=== PATIENT | male | born 1940 | race Caucasian/White ===

== ENCOUNTER 2024-07-05 22:28 | Observation (INO) ==
[2024-07-05 23:02] LABS: Hematocrit 31.8 % (38-53); Hemoglobin 11.2 g/dL (13.2-16.3); Mean Corpuscular Hemoglobin 30.1 pg (27-33); Mean Corpuscular Hgb Conc 35.2 g/dL (31-36); Mean Corpuscular Volume 85.5 fL (80-97); Mean Platelet Volume 6.1 fL (7.5-11.2); Platelet Count 294 10^3/uL (150-450); Red Blood Count 3.72 10^6/uL (4.06-5.63); Red Cell Distribution Width 16.1 % (12-17); White Blood Count 5.5 10^3/uL (3.6-10.2)
[2024-07-05 23:06] LABS: INR 0.96 (0.85-1.14)
[2024-07-05 23:24] LABS: High Sens Troponin Baseline 10 pg/mL (<20)
[2024-07-05 23:51] LABS: ALT 12 U/L (7-52); Albumin 3.9 g/dL (3.2-5.2); Albumin/Globulin Ratio 1.8 (1-3); Alkaline Phosphatase 60 U/L (35-149); Anion Gap 9 mmol/L (2-16); Blood Urea Nitrogen 30 mg/dL (6-24); CO2 Carbon Dioxide 26 mmol/L (22-32); Calcium 9.3 mg/dL (8.6-10.3); Chloride 93 mmol/L (101-111); Creatinine, Serum 1.26 mg/dL (0.67-1.17); Globulin 2.2 g/dL (2-4); Glucose 168 mg/dL (70-100); Magnesium 1.5 mg/dL (1.9-2.7); Sodium 128 mmol/L (135-145); Total Bilirubin 0.5 mg/dL (0.2-1.0); Total Protein 6.1 g/dL (6.4-8.9); eGFR CKD-EPI 56.9 (>60)
[2024-07-06 00:06] LABS: TSH Ultra Thyroid Stim Horm 3.96 mcIU/mL (0.34-5.60)
[2024-07-06 00:38] LABS: ABS Basophils 0.1 10^3/uL (0.0-0.1); ABS Eosinophils 0.1 10^3/uL (0.0-0.5); ABS Lymphocytes 1.6 10^3/uL (1.0-4.8); ABS Monocytes 0.9 10^3/uL (0.0-1.1); ABS Neutrophils 2.9 10^3/uL (1.5-7.6); ABS Nucleated RBC 0.01 10^3/ul; Eosinophil % 2.1 %; Lymphocyte % 28.9 %; Nucleated Red Blood Cells % 0.1 %/100WBC (0.0-0.8)
[2024-07-06 00:59] LABS: Potassium Redraw 4.3 mmol/L (3.5-5.0)
[2024-07-06] MEDS: Heparin 5000 UNITS/ML 1 mL VIAL IV SCH (02:20)
[2024-07-06] MEDS: Heparin DRIP 25,000 UNITS BAG 25,000 UNITS/250 ML BAG IV SCH (02:23)
[2024-07-06 02:59] LABS: High Sensitivity Troponin 3 Hr 141 pg/mL (<20)
[2024-07-06] MEDS ORDERED: Sulfur Hexaflouride MICROSPHR 25 MG VIAL IV PRN (03:27)
[2024-07-06] MEDS ORDERED: Nitroglycerin 0.6 mg TAB SL PRN (04:31)
[2024-07-06] MEDS: Magnesium Sulf 4 GM/100 ML IV 4,000 MG/100 ML BAG IVPB ONE (04:42)
[2024-07-06] MEDS ORDERED: Dextrose 50% Syringe 50 ml 25 GM/50 ML SYRINGE IV PUSH PRN (05:02)
[2024-07-06] MEDS: NS 0.9% 500 ml BAG 500 ML IV ONE (05:07)
[2024-07-06 05:13] LABS: Cholesterol 161 mg/dL; LDL Cholesterol 76 mg/dL; Triglycerides 86 mg/dL
[2024-07-06 06:08] LABS: Urine Appearance Clear; Urine Bilirubin Negative (Negative); Urine Blood Negative (Negative); Urine Color Colorless; Urine Glucose Negative (Negative); Urine Ketones Negative (Negative); Urine Nitrite Negative (Negative); Urine Protein Negative (Negative); Urine Urobilinogen Negative (Negative)
[2024-07-06 06:54] LABS: Hematocrit 28.9 % (38-53); Hemoglobin 10.1 g/dL (13.2-16.3); Mean Corpuscular Hemoglobin 30.3 pg (27-33); Mean Corpuscular Hgb Conc 35.1 g/dL (31-36); Mean Corpuscular Volume 86.4 fL (80-97); Mean Platelet Volume 5.9 fL (7.5-11.2); Platelet Count 248 10^3/uL (150-450); Red Blood Count 3.34 10^6/uL (4.06-5.63); Red Cell Distribution Width 15.8 % (12-17); White Blood Count 4.2 10^3/uL (3.6-10.2)
[2024-07-06] MEDS: Aspirin EC 81 mg TAB.EC (enteric coated) PO SCH (08:27)
[2024-07-06 09:16] LABS: Calcium 8.5 mg/dL (8.6-10.3); Creatinine, Serum 1.01 mg/dL (0.67-1.17); Magnesium 2.3 mg/dL (1.9-2.7); Potassium 4.2 mmol/L (3.5-5.0); eGFR CKD-EPI 74.3 (>60)
[2024-07-06 09:18] LABS: High Sensitivity Troponin 3 Hr 64 pg/mL (<20)
[2024-07-07 06:19] LABS: ABS Eosinophils 0.1 10^3/uL (0.0-0.5); ABS Lymphocytes 0.9 10^3/uL (1.0-4.8); ABS Monocytes 0.6 10^3/uL (0.0-1.1); ABS Neutrophils 2.3 10^3/uL (1.5-7.6); Eosinophil % 2.6 %; Hematocrit 29.1 % (38-53); Hemoglobin 10.3 g/dL (13.2-16.3); Lymphocyte % 21.7 %; Mean Corpuscular Hemoglobin 30.3 pg (27-33); Mean Corpuscular Hgb Conc 35.4 g/dL (31-36); Mean Corpuscular Volume 85.6 fL (80-97); Platelet Count 248 10^3/uL (150-450); Red Blood Count 3.39 10^6/uL (4.06-5.63); Red Cell Distribution Width 15.9 % (12-17); White Blood Count 3.9 10^3/uL (3.6-10.2)
[2024-07-07 08:54] LABS: Calcium 8.5 mg/dL (8.6-10.3); Creatinine, Serum 0.93 mg/dL (0.67-1.17); Magnesium 1.6 mg/dL (1.9-2.7); Potassium 4.1 mmol/L (3.5-5.0)
[2024-07-07] MEDS: Magnesium Sulf 4 GM/100 ML IV 4,000 MG/100 ML BAG IVPB ONE (11:29)
[2024-07-07 14:48] LABS: Ferritin 199.8 ng/mL (24-336)
[2024-07-07] MEDS: Influenza Vaccine *TRI* 2024-25* 0.5 ML SYRINGE IM ONE (15:35)
[2024-07-08 06:50] LABS: ABS Eosinophils 0.1 10^3/uL (0.0-0.5); ABS Lymphocytes 0.8 10^3/uL (1.0-4.8); ABS Monocytes 0.8 10^3/uL (0.0-1.1); Eosinophil % 1.8 %; Hematocrit 30.6 % (38-53); Hemoglobin 10.8 g/dL (13.2-16.3); Lymphocyte % 13.8 %; Mean Corpuscular Hemoglobin 30.1 pg (27-33); Mean Corpuscular Hgb Conc 35.3 g/dL (31-36); Mean Corpuscular Volume 85.4 fL (80-97); Mean Platelet Volume 5.9 fL (7.5-11.2); Platelet Count 267 10^3/uL (150-450); Red Blood Count 3.58 10^6/uL (4.06-5.63); Red Cell Distribution Width 16.2 % (12-17); White Blood Count 5.7 10^3/uL (3.6-10.2)
[2024-07-08 07:37] LABS: Calcium 8.7 mg/dL (8.6-10.3); Creatinine, Serum 0.97 mg/dL (0.67-1.17); Magnesium 1.6 mg/dL (1.9-2.7); Potassium 4.3 mmol/L (3.5-5.0); eGFR CKD-EPI 77.9 (>60)
[2024-07-08] MEDS: NS 0.9% 1000 ml BAG 1,000 ML IV ONE (08:25)
[2024-07-08] MEDS ORDERED: Heparin 1,000 UNIT/ML 10 ml (10,000 UNITS) CATHLAB/DIALYSIS ONE (09:51)
[2024-07-08] MEDS ORDERED: Midazolam 5 mg/5 ml VIAL 1 mg/ml 5 ml VIAL (5 mg) ONE (09:51)
[2024-07-08] MEDS ORDERED: fentaNYL 100 mcg/2 ml 50 MCG/ML VIAL ONE ×2 (09:51→10:47)
[2024-07-08] MEDS ORDERED: Lidocaine 1% MPF 5 ML VIAL ONE (09:52)
[2024-07-08] MEDS ORDERED: Heparin 2 UNITS/ML 1000 mls 2,000 ML IV ONE (09:52)
[2024-07-08] MEDS ORDERED: nitroGLYCERIN DRIP 25,000 MCG/250 ML BTL ONE (09:52)
[2024-07-08] MEDS ORDERED: Iohexol 350 (CONTRAST) 200 ML MDV IV ONE (09:52)
[2024-07-08] MEDS ORDERED: VERAPAMIL 2.5 MG/ML 2 ML VIAL ** 5 mg/2 ml ONE (10:12)
[2024-07-08] MEDS: fentaNYL 100 mcg/2 ml 50 MCG/ML VIAL IV SLOW PU ONE (11:04)
[2024-07-08] MEDS: NS 0.9% 1000 ml BAG 1,000 ML IV SCH (11:24)
[2024-07-08 16:30] VITALS: BP 142/57
== END 2024-07-08 16:00 | disposition short-term general hospital (02) ==
LOC: ED 22:28 → INTOOBSV 07-06 01:08 → EDHOLD 07-06 01:08 → SUATTDRO 07-06 01:08 → MEDTELE 07-06 10:49
PROVIDERS: ADMIT Internal Medicine; ATTEND Internal Medicine